=== PATIENT | female | born 1960 | race Caucasian/White ===

== ENCOUNTER 2024-10-16 09:49 | Outpatient (OUT) | payer MEDICARE, OTHER, SELFPAY ==
--- NOTE | 2024-10-16 10:45 | NM_ITS ---
Patient Name: KUMAR VILLAFUERTE MR#: [id number] : 1960 Exam Date: 10/16/2024 Ordering Doctor: LUCY PEREA STREET [employer] INSTALLEREben RADIOLOGY REPORT PROCEDURE: NM ADAN PERF SPECT REST STR COMPARISON: None. INDICATIONS: CHEST PAIN TECHNIQUE: Exam Description: Stress/Rest two day protocol gated SPECT Rest Imagin.9 mCi Tc-99m Cardiolite IV on 10/16/2024 Stress Imaging 30.4 mCi Tc-99m Cardiolite IV on 10/16/2024 Exercise Protocol: Umesh Heart Rate (bpm): Rest: 51 Max: 134 PMHR: 86 Blood Pressure: Rest: 126/72 Max: 130/82 Exercise Time: Minutes: 4 Seconds: 44 Stage Reached: Stage: 2 Mets 7.0 Symptoms: Rest and peak stress ECG findings were pending, and the exercise portion of the study was pending per attending physician [facility]. For more details, please see separate cardiac stress test report. FINDINGS: QUALITY OF STUDY: Good PERFUSION DEFECT: LOCATION: N/A SIZE: N/A SEVERITY: N/A TYPE: N/A WALL MOTION: Normal wall motion LV SIZE: 61 mL. TID / TCD: 0.9 LVEF: Calculated EF 79%. SUMMARY: Myocardial perfusion imaging study is normal CONCLUSION: 1. Myocardial perfusion is normal 2. Global left ventricular systolic function is hyperdynamic 3. No evidence of transient ischemic dilatation Dictated by: Eligio Lopez M.D. on 10/17/2024 at 16:37 Approved by: Eligio Lopez M.D. on 10/17/2024 at 16:39
== END 2024-10-16 09:50 | disposition home or self-care (01) ==
LOC: LAB 09:54
PROVIDERS: PCP Nurse Practitioner Family; Visit Provider Nurse Practitioner Family
DX: R07.9 Chest pain, unspecified (principal); Z82.49 Family history of ischemic heart disease and other diseases of the circulatory system; R51.9 Headache, unspecified; R25.1 Tremor, unspecified
CPT/HCPCS: 78452; 93017; A9500

== ENCOUNTER 2024-10-16 10:14 | Outpatient (OUT) | payer MEDICARE, OTHER, SELFPAY ==
[2024-10-16 10:36] LABS: Estimated GFR (African America >60 (>=60 mL/min/1.73m^2); Estimated GFR (Non-African Ame >60 (>=60 mL/min/1.73m^2)
--- NOTE | 2024-10-18 12:18 | PM.STRESS ---
Stress Test Stress Test Requesting physician: LUCY PEREA Procedure: Treadmill Cardiolite stress test General Information: Reason for Stress Test: [Chest pain] Cardiac History and Risk Factors: [] Resting 12 - Lead Electrocardiogram: Sinus bradycardia Low voltage QRS in precordial leads Borderline ECG Stress Test: Protocol: [Umesh protocol] Exercise Capacity: [Average] Blood Pressure Response: [Normal resting blood pressure, reduced blood pressure response] Rhythm: [Sinus] ST - Response: [There are 0.[address] depression seen in leads II, III, and aVF] Patient Response: [Dyspnea] Interpretation: 1. Equivocal ST changes in leads II, III and aVF on treadmill exercise 2. Appropriate heart rate, reduced blood pressure response to exercise 3. No significant arrhythmias seen 4. Ly treadmill score is 1.9. Estimated 1 year mortality: 1.0 to 1.1%. Risk category: Moderate risk. Angiography: May be indicated 5. Nuclear images are to be read, interpreted, and reported separately
== END 2024-10-16 10:15 | disposition home or self-care (01) ==
LOC: LAB 10:15
PROVIDERS: PCP Nurse Practitioner Family; Visit Provider Family Medicine
DX: R51.9 Headache, unspecified (principal)
CPT/HCPCS: 36415; 82565

== ENCOUNTER 2024-11-26 09:59 | Outpatient (OUT) | payer MEDICARE, OTHER, SELFPAY ==
[2024-11-26 10:55] LABS: Alanine Aminotransferase 26 U/L (14-59); Aspartate Amino Transferase 22 U/L (15-37); Cholesterol 212 mg/dL (<=200); HDL Cholesterol 70 mg/dL (40-60); Triglycerides 106 mg/dL (<=150); VLDL CHOLESTEROL 21.2 mg/dL
== END 2024-11-26 10:00 | disposition home or self-care (01) ==
LOC: LAB 10:01
PROVIDERS: PCP Nurse Practitioner Family; Visit Provider Internal Medicine Cardiovascular Disease
DX: E78.2 Mixed hyperlipidemia (principal)
CPT/HCPCS: 36415; 80061; 84450; 84460

== ENCOUNTER 2025-04-17 07:36 | Outpatient (OUT) | payer MEDICARE, OTHER, SELFPAY ==
--- OUTSIDE RECORDS SUMMARY | 2025-04-17 07:45 | XMS_ITS | Clinical Summary ---
Author Organization [facility] Address [address] [place] [address] Care Team Providers Care Assistant Professor Of Radiology Name Role Phone Sarah Roa NP Primary Care Provider [phone] Allergies Active AllergyReactionsCriticalityNoted DateCommentsPain QeodldziFggwr45/28/2017 Unknown per pt Medications MedicationSigDispense QuantityRefillsLast FilledStart DateEnd DateStatus levothyroxine (Synthroid, Levoxyl) 125 mcg tablet Take 125 mcg by mouth in the morning.Active fexofenadine-pseudoephedrine (Danna-D 24) 180-240 mg 24 hr tablet Take 1 tablet by mouth in the morning.10/16/2018Active albuterol 2.5 mg /3 mL (0.083 %) nebulizer solution Inhale 2.5 mg every 6 (six) hours if needed.07/07/2020ctive Active Problems ProblemNoted DateDiagnosed DateAtypical chest pain11/25/2024Overweight (BMI 25.0-29.9)11/25/2024Mixed uexmriblwbefcr85/29/4380Mxtttfh59/26/2025bnormal weight gain09/20/2024Mild intermittent auxbay3309/23/2023Generalized anxiety forzkder55/14/0868Xwabumr98/14/2023Obstructive sleep apnea vdxibwtq17/14/2023 Acute diffuse otitis externa of right ear01/30/2020Acute recurrent maxillary bdbwyzhbb15/02/0746H97 cavixslybq46/02/2020Malaise and szywzis8501/30/2020General medical exam10/16/2018Acute recurrent frontal sriudsyba36/09/2019Degenerative disc disease, sbwkmx3209/05/2018Tremor, uqlxnwypvcz05/09/2019Iliotibial band jzajgqul71/26/2018Trochanteric dhhhezwa50/26/2018Acquired hypothyroidism 03/27/2018Hip pain, chronic, left03/27/2018Chronic seasonal allergic rhinitis 02/21/2018Extrinsic pinqvc3302/21/2018GERD without /25/2018 Family History Medical HistoryRelationNameCommentsHeart attackMaternal GrandfatherHeart attack Mother's BrotherRelationNameStatusCommentsMaternal GrandfatherMother's Brother Social History Tobacco UseTypesPacks/DayYears UsedDateSmoking Tobacco: NeverSmokeless Tobacco: Never Tobacco Cessation:Counseling Given: Not Answered Alcohol UseStandard Drinks/WeekCommentsYes0 (1 standard drink = 0.6 oz pure alcohol)occasionalCommentsUnknownSex and Gender InformationValueDate RecordedSex Assigned at BirthNot on fileLegal WjbVvwykl39/02/2025 2:19 PM EDT Gender IdentityNot on fileSexual OrientationNot on file Last Filed Vital Signs Vital SignReadingTime TakenCommentsBlood Kgybklym193/8606 3:13 PM EDT Qwddm636511/22/2024 3:13 PM EDTTemperature--Respiratory Rate--Oxygen Dfkojqdmmw48% 11/22/2024 3:13 PM EDTInhaled Oxygen Concentration--Pudyev37.3 kg (177 lb) 11/22/2024 3:13 PM KHZVdpkvo656.4 cm (5' 5.5 )11/22/2024 3:13 PM EDTBody Mass Index29.01011/22/2024 3:13 PM EDT Plan of Treatment DateTypeDepartmentCare Team (Latest Contact Info)Uoihggkebpf91/05/2026 11:20 AM ESTOffice Visit [facility] [address] [place] [address] Nikky Mustafa MD [address] [place] [address] Health MaintenanceDue DateLast DoneCommentsCT Ghbocxbwtemy1959Colonoscopy 1960FOBT1960Medicare Annual Wellness (AWV)1960Medicare Initial Physical (IPPE)1960 2703Cygnaatcddjbs1959Depression Yadovgjxn84/30/1971 Pneumococcal Vaccine: 50+ Years (1 of 2 - PCV)1978Pap Smear1980Adult Ummhxgf3405/28/1981Cervical Cancer Yjghomidf26/30/1989HPV/Pqtzfp6605/28/1989 Ysraijgey40/30/1999Zoster Vaccines (1 of 2)2009Fall Risk Screening 2024OVID-19 Vaccine ( - 2024- season)2025Influenza Vaccine (#1) 2025FIT06/606/olorectal Cancer Cczhkneut40/09/2028FIT-DNA /01/2025, 10/20/2021HIB VaccinesAged OutNo longer eligible based on patient's age to complete this topicHPV VaccinesAged OutNo longer eligible based on patient's age to complete this topicIPV VaccinesAged OutNo longer eligible based on patient's age to complete this topicMeningococcal B VaccineAged OutNo longer eligible based on patient's age to complete this topicMeningococcal VaccineAged OutNo longer eligible based on patient's age to complete this topic Rotavirus VaccinesAged OutNo longer eligible based on patient's age to complete this topic Insurance Care Teams Team MemberRelationshipSpecialtyStart DateEnd Date Sarah Roa NP [address] [place] [address] PCP - GeneralFamily Medicine11/19/24
--- OUTSIDE RECORDS SUMMARY | 2025-04-17 07:45 | XMS_ITS | Clinical Summary ---
Author Organization [facility] Address [id number] [place] [address] Care Team Providers Care [employer] Export Account Manager Name Role Phone Petty Maxwell APRN-HEEL SCOURER Primary Care Provid er Allergies Active AllergyReactionsCriticalityNoted DateCommentsPain Ifguiwqs62/28/2017 Unknown per pt Medications MedicationSigDispense QuantityRefillsLast FilledStart DateEnd DateStatus fexofenadine-pseudoephedrine (NILO-D 24) 180-240 mg per 24 hr tablet Indications:Mild intermittent extrinsic asthma without complication,Chronic seasonal allergic rhinitisTake 1 tablet by mouth daily. 30 tablet Active albuterol (PROVENTIL,VENTOLIN) 2.5 mg /3 mL (0.083 %) nebulizer solution Indications:Mild intermittent extrinsic asthma with acute exacerbationInhale 3 mL (2.5 mg total) by nebulization every 6 (six) hours as needed for wheezing or shortness of breath. 50 vial ctive albuterol (PROAIR HFA) 90 mcg/actuation inhaler Indications:Mild intermittent extrinsic asthma without complicationInhale 2 puffs every 6 (six) hours as needed for wheezing. 18 g 6007/31/2020ctive levothyroxine (SYNTHROID, LEVOTHROID) 125 MCG tablet Indications:Hypothyroidism, unspecified typeTake 1 tablet (125 mcg total) by mouth in the morning. 90 tablet 2Active fluticasone propionate (FLONASE) 50 mcg/actuation nasal spray Indications:Non-seasonal allergic rhinitis due to pollenAdminister 2 sprays into each nostril in the morning. 16 g 6006/15/2022ctive pantoprazole (PROTONIX) 40 mg EC tablet Indications:GERD without esophagitisTake 1 tablet (40 mg total) by mouth in the morning. 90 tablet ctive tiotropium bromide (SPIRIVA RESPIMAT) 1.25 mcg/actuation mist Indications:Mild intermittent extrinsic asthma with acute exacerbationInhale 2.5 mcg in the morning. 4 g ctive citalopram (CeleXA) 20 mg tablet Indications:AnxietyTAKE 1 TABLET BY MOUTH IN THE MORNING 90 tablet ctive Active Problems ProblemNoted DateDiagnosed DateGeneralized anxiety jxdtxsti08/14/2023Obesity 08/10/2022Obstructive sleep apnea pirrtupf11/14/2023Organic sleep apnea 08/10/2022B12 tmhmwxanfa69/02/2020Acute diffuse otitis externa of right ear 01/30/2020Other wptgave0001/30/2020Acute recurrent maxillary apiwzbibc89/02/2020 General medical exam10/16/2018Acute recurrent frontal uniuoaszr63/09/2019 Degenerative disc disease, ydamgr2809/05/2018Tremor of both hands09/05/2018 Trochanteric /26/2018Iliotibial band /26/2018Hypothyroidism 03/27/2018Hip pain, chronic, left03/27/2018GERD without dnpyjmgadfg92/25/2018 Chronic seasonal allergic /25/2018Extrinsic bltabv9702/21/2018Anxiety Family History Medical HistoryRelationNameCommentsAlzheimer's diseaseFatherDiabetesFather ParkinsonismFatherHeart diseaseMotherRelationNameStatusCommentsFatherDeceased (Age 82)MotherAliveSisterAliveSonAlive Social History Tobacco UseTypesPacks/DayYears UsedDateSmoking Tobacco: NeverSmokeless Tobacco: Never Tobacco Cessation:Counseling Given: No Alcohol UseStandard Drinks/WeekCommentsYes0 (1 standard drink = 0.6 oz pure alcohol)rarelyPHQ-2AnswerDate RecordedTotal Ccyvm275/22/2023ChildcareAnswerDate LtacawysSunealbckMandzbk81/13/2019EmploymentAnswerDate RecordedEmploymentUnknown 11/09/2018Purpose - LifeAnswerDate RecordedPurpose and direction in lifeUnknown 1CommentsNoSex and Gender InformationValueDate RecordedSex Assigned at NyvrhNapkhx53/08/2021 2:39 PM ESTLegal LtzEroatt49/28/2017 8:12 AM EDTGender WiaedssiRmqgik91/08/2021 2:39 PM ESTSexual OrientationNot on file Last Filed Vital Signs Vital SignReadingTime TakenCommentsBlood Mfasiujh886/8210/18/2022 8:56 AM EDT Esprx975910/18/2022 8:56 AM KKZAtwbhvayysd86.6 ??C (97.8 ??F)10/18/2022 8:56 AM EDTRespiratory Xzfp8685 9:32 AM EDTOxygen Cvewjmrppo56%10/18/2022 8:56 AM EDTInhaled Oxygen Concentration--Yrkcdn89.4 kg (177 lb 3.2 oz)10/18/2022 8:56 AM UTYTxejuu258 cm (5' 3 )10/18/2022 8:56 AM EDTBody Mass Index31.39010/18/2022 8:56 AM EDT Plan of Treatment Health MaintenanceDue DateLast DoneCommentsTobacco Qxemiekol62/30/1971DTaP,Tdap and Td Vaccines (1 - Tdap)05/28/19780358Zlumpcdxuqq43/30/2004Zoster (Shingles) Vaccine (1 of 2)05/28/20095175Kkonezfiy39, 2013RSV ( or age 60+ yrs) (1 - Risk 60-74 years 1-dose series)2019Adult BMI Uvjqrnqxb23epression Orwaqaopi07Fall Risk Zjlhieizq16/30/589030/Influenza Dfysuol3401/28/2025 Medical Devices Not on file Insurance * Guarantor: BERNARDA CRISTOBAL EVSDAccount TypeRelation to PatientDate of BirthPhoneBilling AddressCorporateEmploabrazo central campus [address] [place] [phone] Care Teams Team MemberRelationshipSpecialtyStart DateEnd Date Petty Maxwell, RUBBER CUTTER-HEEL SCOURER PCP - GeneralFamily Medicine02/21/18
--- OUTSIDE RECORDS SUMMARY | 2025-04-17 07:46 | XMS_ITS | Clinical Summary ---
Author Organization [facility] Address [address] [place] [address] Care Team Providers Care Bit[employer] Applier Name Role Phone Unavailable Primary Care Provider Unavailabl e Social History Tobacco UseTypesPacks/DayYears UsedDateSmoking Tobacco: Never Assessed CommentsUnknownSex and Gender InformationValueDate RecordedSex Assigned at Not on fileLegal LmjTgilcy62/04/2023 12:16 PM EDTGender IdentityNot on file Sexual OrientationNot on file Last Filed Vital Signs Vital SignReadingTime TakenCommentsBlood Pressure--Pulse--Temperature-- Respiratory Rate--Oxygen Saturation--Inhaled Oxygen Concentration--Tnsufr83.1 kg (170 lb)09/28/2022 12:00 PM HFBAggyiz996.1 cm (5' 5 )09/28/2022 12:00 PM EDTBody Mass Index28.29009/28/2022 12:00 PM EDT Plan of Treatment Not on file Insurance
[2025-04-17 08:10] LABS: Cholesterol 220 mg/dL (<=200); HDL Cholesterol 69 mg/dL (40-60); Triglycerides 126 mg/dL (<=150); VLDL CHOLESTEROL 25.2 mg/dL
== END 2025-04-17 07:37 | disposition home or self-care (01) ==
LOC: LAB 07:42
PROVIDERS: PCP Nurse Practitioner Family; Visit Provider Internal Medicine Cardiovascular Disease
DX: E78.5 Hyperlipidemia, unspecified (principal)
CPT/HCPCS: 36415; 80061